=== PATIENT | male | born 2000 | race Caucasian/White ===

== ENCOUNTER 2020-07-18 15:32 | Emergency (ER) | payer BC, OTHER ==
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
[2020-07-18] MEDS ORDERED: TRAM50TA3 PO (17:22)
[2020-07-18] MEDS ORDERED: CYCL10TA9 PO (17:22)
[2020-07-18 17:36] VITALS: BP 115/65
== END 2020-07-18 17:36 | disposition home or self-care (01) ==
LOC: ER FS 15:37
DX: S06.0X9A Concussion with loss of consciousness of unspecified duration, initial encounter (principal); S16.1XXA Strain of muscle, fascia and tendon at neck level, initial encounter; S29.012A Strain of muscle and tendon of back wall of thorax, initial encounter; S00.83XA Contusion of other part of head, initial encounter; F17.290 Nicotine dependence, other tobacco product, uncomplicated; V86.05XA Driver of 3- or 4- wheeled all-terrain vehicle (ATV) injured in traffic accident, initial encounter
CPT/HCPCS: 70450; 71045; 72125; 72128